=== PATIENT | female | born 1995 | race Caucasian/White ===

== ENCOUNTER → 2020-10-17 | Outpatient (CLI) | payer BC ==
[~2020-10-17] MED LIST: IBUPROFEN400 MG PO
== END ==
LOC: KOH-I 14:51
DX: M25.542 Pain in joints of left hand (principal)
CPT/HCPCS: 73130

== ENCOUNTER 2021-03-16 21:21 | Emergency (ER) | payer BC ==
[2021-03-17 01:51] LABS: HEMOGLOBIN 13.7 gm/dl (12.3-15.3); RED BLOOD COUNT 4.71 M/UL (4.00-5.10)
[2021-03-17 02:21] LABS: BUN/CREATININE RATIO 11 (0-10)
[2021-03-17] MEDS ORDERED: IBUPROFEN800 MG PO (02:39)
== END 2021-03-17 03:50 | disposition home or self-care (01) ==
LOC: ER1 21:21
PROVIDERS: Physician Assistant
DX: R51.9 Headache, unspecified (principal); Z20.822 Contact with and (suspected) exposure to COVID-19; Z88.0 Allergy status to penicillin
CPT/HCPCS: 0240U; 70450; 80048; 85025; 87081; 87880; 96374; 96375; 99284; J1200; J1885; J2765